=== PATIENT | female | born 1970 | race Caucasian/White ===

== ENCOUNTER 2016-08-08 14:29 | Emergency (ER) | payer OTHER, BC ==
[2016-08-08 14:55] VITALS: RESP 12; TEMP 97.3
--- NOTE | 2016-08-08 15:04 | PDOC ---
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 She enforcement was splashed with a brownish appearing fluid that she was unsure if it was blood her iodine or exactly what it was. She did feel that she got some in her eyes. She flushed her eyes out copiously with copious amounts of water and came to the emergency department. The source patient from the surgery is known. This patient denies any history of any blood borne communicable infections. Have you received a tetanus shot in the past 10 years?: Unknown - Patient Home Medications Home Medications: Home Medications Docusate Sodium [Colace] 100 mg PO DAILY cap 12/21/15 Lisinopril 1 tab PO QD #90 tab 01/04/16 Rosuvastatin Calcium [Crestor] 1 tab PO pm meal #90 tab 01/04/16 - Patient Allergies Allergies/Adverse Reactions: Allergies Allergy/AdvReac Type Severity Reaction Status Date / Time menthol Allergy Mild HIVES Verified 08/08/16 14:37 Past Medical History - heen HEENT History: Denies History Cardiovascular History: Hypertension, Hyperlipidemia Respiratory History: Denies History Gastrointestinal History: Denies History Genitourinary History: Denies History Endocrine History: Denies History Musculoskeletal History: Denies History Prosthesis or Implant: No Neurological History: Denies History Blood Disorders: Denies History Psychiatric History: Denies History Cancer History: Denies History History of MDRO: No Alcohol Use: None Substance Use Type: None Previous Surgical History: No Significant Family History: Hypertension Past Medical History Reviewed: Reviewed - No Changes ROS - Limitations ROS Limitations: No Limitations Constitution: REPORTS: Denies Symptoms Body Fluid Exposure PE - General Appearance General Appearance: REPORTS: Alert, Cooperative, No Acute Distress - HEENT HEENT: POSITIVE: Head Inspection Nml - Neck Neck: POSITIVE: Non Tender - Respiratory / CVS Respiratory / CVS: POSITIVE: No Respiratory Distress - Neurological / Psychological Neuro / Psych: POSITIVE: Oriented X3 Body Fluid Exposure Progress - Patient's Progress MDM / ED Course: Per hospital policy the patient is being evaluated for blood-borne communicable diseases referred to our infection control process and source patient is being tested as well. Patient Care Time - Estimated PCT Patient Care Time (In Minutes): 20 Vital Signs - VS Reviewed Vital Signs Reviewed: Yes Discharge Clinical Impression: Exposure to communicable disease Discharge Disposition: Discharged to Home Condition: Fair Patient Instructions Given at Discharge: Postexposure Prophylaxis (ED) Additional Instructions: Please follow-up with infection control for further information Follow Up With: NATACHA BROCK [Primary Care Provider] -
[2016-08-08 15:28] LABS: HIV ANTIBODY NEGATIVE (N); HIV-1 P24 ANTIGEN NEGATIVE (N)
[2016-08-11 23:47] LABS: HCV AB SCREEN Negative (Negative); HEPATITIS B SURF AB QL Negative (())
== END 2016-08-08 15:03 | disposition home or self-care (01) ==
LOC: ER 14:29
DX: Z20.9 Contact with and (suspected) exposure to unspecified communicable disease (principal); Y92.239 Unspecified place in hospital as the place of occurrence of the external cause; Y99.0 Civilian activity done for income or pay
CPT/HCPCS: 36415; 99282

== ENCOUNTER → 2016-12-30 | Outpatient (CLI) | payer BC ==
[2016-12-30 08:13] LABS: BLOOD UREA NITROGEN 16 mg/dL (7-22); BUN/CREATININE RATIO 22.85 (6-20); CALCIUM 9.8 mg/dL (8.7-10.7); CHOL/HDL RATIO 3.17 RATIO (0-4.0); EST GLOMERULAR FILTRATION > 60 (>60 ml/min/1.73m(2)); GAMMA GLUTAMYL TRANSPEPTIDASE 21 IU/L (8-78); HDL CHOLESTEROL 47 mg/dL (40-150); SERUM CHOLESTEROL 149 mg/dL (120-200)
== END ==
LOC: LAB 07:10
PROVIDERS: ATTEND Nurse Practitioner Family
DX: I10 Essential (primary) hypertension (principal); E78.5 Hyperlipidemia, unspecified
CPT/HCPCS: 36415; 80048; 82247; 82465; 82550; 82977; 83718; 84075; 84450; 84460; 84478